=== PATIENT | female | born 1980 | race Caucasian/White ===

== ENCOUNTER 2022-04-22 11:32 | Outpatient (CLI) | payer OTHER, SELFPAY ==
[2022-04-22 12:49] LABS: Chloride* 103 mmol/L (96-114); Potassium* 4.3 mmol/L (3.6-5.1); Sodium* 139 mmol/L (135-149)
[2022-04-22 12:52] LABS: Blood Urea Nitrogen* 19 mg/dL (5-24); Carbon Dioxide* 27 mmol/L (20-32); Estimated Glomerular Filt Rate 72 ml/min
[2022-04-22 12:53] LABS: Calcium* 9.6 mg/dL (8.4-10.6); Glucose* 101 mg/dL (60-115)
== END 2022-04-22 11:33 | disposition home or self-care (01) ==
LOC: NFLDREF 11:33
PROVIDERS: PCP Family Medicine; Visit Provider Family Medicine
DX: Z01.818 Encounter for other preprocedural examination (principal)
CPT/HCPCS: 80048

== ENCOUNTER 2022-05-27 15:26 | Outpatient (CLI) | payer OTHER, SELFPAY ==
--- NOTE | 2022-05-27 15:40 | CRLHL7_ITS ---
For Patients: As a result of the Century Cures Act, medical imaging exams and procedure reports are released immediately into your electronic medical record. You may view this report before your referring provider. If you have questions, please contact your health care provider. BILATERAL DIGITAL SCREENING MAMMOGRAM WITH COMPUTER-AIDED DETECTION AND TOMOSYNTHESIS, 05/27/2022 CLINICAL HISTORY: Routine screening exam. COMPARISON: 03/14/2019 TECHNIQUE: Digital mammogram in CC and MLO projections including computer-aided detection (CAD) and tomosynthesis. BREAST COMPOSITION: There are scattered areas of fibroglandular density. FINDINGS: RIGHT Breast: Nodular density in the lower outer quadrant 5 cm from the nipple. LEFT Breast: No suspicious findings. IMPRESSION: RIGHT breast asymmetry/mass. RECOMMENDATIONS: Additional mammographic views of the RIGHT breast including 3D spot compression CC and MLO. RIGHT breast ultrasound may also be required. The [facility] will contact the patient for follow-up. BI-RADS Category 0: Incomplete - Need Additional Imaging Evaluation and/or Prior Mammograms for Comparison A lay language report of this examination will be provided to the patient. Dictated by Bartolome Marie MD @ 05/28/2022 8:29:46 AM CRL:[email or web address] RD/Dictated by: Bartolome Marie MD @ 05/28/2022 8:29:00 AM (Electronically Signed)
== END 2022-05-27 15:27 | disposition home or self-care (01) ==
LOC: MAMMO 15:27
PROVIDERS: PCP Family Medicine; Visit Provider Obstetrics & Gynecology
DX: Z12.31 Encounter for screening mammogram for malignant neoplasm of breast (principal); N63.10 Unspecified lump in the right breast, unspecified quadrant
CPT/HCPCS: 77063; 77067

== ENCOUNTER 2022-06-05 08:27 | Outpatient (CLI) | payer OTHER, SELFPAY ==
--- NOTE | 2022-06-05 08:45 | CRLHL7_ITS ---
For Patients: As a result of the Cures Act, medical imaging exams and procedure reports are released immediately into your electronic medical record. You may view this report before your referring provider. If you have questions, please contact your health care provider. DIGITAL DIAGNOSTIC RIGHT MAMMOGRAM USING TOMOSYNTHESIS AND COMPUTER-AIDED DETECTION RIGHT BREAST ULTRASOUND CLINICAL HISTORY: RIGHT breast mass/asymmetry. COMPARISON: 05/27/2022. TECHNIQUE: Digital RIGHT mammogram in two projections. Tomosynthesis and CAD utilized. Real-time ultrasound imaging of RIGHT breast with imaging documentation. Scanning was performed by both the technologist and the radiologist. BREAST COMPOSITION: There are areas of scattered fibroglandular density. FINDINGS: 3D spot compression CC/MLO RIGHT breast mammograms submitted. Persistent nodular density within the lower outer quadrant RIGHT breast. No architectural distortion. Targeted sonogram RIGHT breast 8 o`clock 4 cm from the nipple performed. In this location there is a circumscribed lobular hypoechoic structure measuring 8 x 4 x 8 millimeters. This is located at mid depth without definitive increase through-transmission. No abnormal vascularity. IMPRESSION: Indeterminate hypoechoic lobular structure mid depth RIGHT breast 8 o`clock 4 cm from the nipple measuring 8 millimeters. RECOMMENDATIONS: Ultrasound-guided core needle biopsy. Results and recommendations discussed with the patient. BI-RADS Category 4: Suspicious A lay language report of this examination will be provided to the patient. Dictated by Bartolome Marie MD @ 06/05/2022 11:23:43 AM /Dictated by: Bartolome Marie MD @ 06/05/2022 11:23:00 AM (Electronically Signed)
--- NOTE | 2022-06-05 09:15 | CRLHL7_ITS ---
For Patients: As a result of the Cures Act, medical imaging exams and procedure reports are released immediately into your electronic medical record. You may view this report before your referring provider. If you have questions, please contact your health care provider. PLEASE SEE DIGITAL DIAGNOSTIC RIGHT MAMMOGRAM PERFORMED SAME DAY CRL:[email or web address] macedo/Dictated by: Bartolome Marie MD @ 06/05/2022 11:23:00 AM (Electronically Signed)
== END 2022-06-05 08:28 | disposition home or self-care (01) ==
LOC: MAMMO 08:28
PROVIDERS: PCP Family Medicine; Visit Provider Family Medicine
DX: N63.10 Unspecified lump in the right breast, unspecified quadrant (principal); R92.8 Other abnormal and inconclusive findings on diagnostic imaging of breast
CPT/HCPCS: 76642; 77065; G0279

== ENCOUNTER 2022-06-13 09:54 | Outpatient (CLI) | payer OTHER, SELFPAY ==
--- NOTE | 2022-06-13 10:15 | CRLHL7_ITS ---
For Patients: As a result of the Century Cures Act, medical imaging exams and procedure reports are released immediately into your electronic medical record. You may view this report before your referring provider. If you have questions, please contact your health care provider. ULTRASOUND-GUIDED RIGHT BREAST BIOPSY AND POST-BIOPSY DIGITAL MAMMOGRAM FOR BIOPSY MARKER PLACEMENT CLINICAL HISTORY: Indeterminate lesion RIGHT breast. COMPARISON STUDIES: 06/05/2022, 05/27/2022. TECHNIQUE: Real-time ultrasound with image documentation was used for targeting the breast lesion. Core biopsy specimens were obtained using an automated gun with a 18-gauge biopsy needle. Post-biopsy CC and ML digital mammograms were obtained to document position of the biopsy marker. CONSENT and TIME OUT: The procedure, risks, and alternatives were explained to the patient and a consent was signed. [place] Protocol was followed including pre-procedure verification that relevant information/documentation was available, reviewed and properly matched to the patient; consent accurate and complete; and equipment and supplies available. Time Out was conducted just prior to starting procedure to verify the four required elements: patient identity, correct side/site marked (if applicable), procedure, relevant images/results properly labeled and displayed (if applicable). PROCEDURE: The patient was positioned supine on the ultrasound table. The breast was prepped with ChloraPrep. 8 cc of 1 percent lidocaine used for local anesthesia. Core samples were obtained. A sterile metal biopsy clip was placed percutaneously to tom the lesion position within the breast. The specimens were placed in 10% formalin and sent to the pathology department. Pressure was held on the biopsy site until all bleeding subsided. The skin incision was closed with Steri-Strips. An ice pack was positioned over the biopsy site. Post-biopsy instructions were reviewed with the patient, and a written copy was given to her. LATERALITY: RIGHT breast. LESION: Lobular hypoechoic lesion measuring 8 x 4 x 8 millimeters at 8 o`clock 4 cm from the nipple. SUSPICION FOR MALIGNANCY: Low. NUMBER OF SAMPLES: 5 BIOPSY CLIP SHAPE: Coil. PROXIMITY OF CLIP TO TARGET: Within the lesion. IMPRESSION: Ultrasound-guided breast biopsy. When the pathology report is available, an addendum to this report will be made. ACR not applicable Dictated by Bartolome Marie MD @ 06/13/2022 11:21:06 AM PT/Dictated by: Bartolome Marie MD @ 06/13/2022 11:21:00 AM ----- ADDENDUM ----- IMPRESSION: Pathology consistent with cluster of apocrine cysts. No evidence of atypia or malignancy. This is concordant. Resume routine annual screening mammography. Dictated by Bartolome Marie MD @ Jun 13 2022 11:21AM Signed by:?Bartolome Marie MD @06/13/2022 12:46:52 PM (Electronically Signed)
--- NOTE | 2022-06-13 10:45 | CRLHL7_ITS ---
For Patients: As a result of the Cures Act, medical imaging exams and procedure reports are released immediately into your electronic medical record. You may view this report before your referring provider. If you have questions, please contact your health care provider. PLEASE SEE RIGHT ULTRASOUND-GUIDED BIOPSY OF SAME DAY. CRL:[email or web address] PT/Dictated by: Bartolome Marie MD @ 06/13/2022 11:21:00 AM (Electronically Signed)
== END 2022-06-13 09:55 | disposition home or self-care (01) ==
LOC: US 09:55
PROVIDERS: PCP Family Medicine; Visit Provider Family Medicine
DX: N63.10 Unspecified lump in the right breast, unspecified quadrant (principal); R92.8 Other abnormal and inconclusive findings on diagnostic imaging of breast
CPT/HCPCS: 19083; 77065; 88305; A4648; A4649

== ENCOUNTER 2023-03-31 13:35 | Outpatient (CLI) | payer OTHER, SELFPAY | END 2023-03-31 13:36 | disposition home or self-care (01) | PROVIDERS: PCP Family Medicine; Visit Provider Nurse Practitioner Family | DX: R20.2 Paresthesia of skin (principal); I10 Essential (primary) hypertension; E66.01 Morbid (severe) obesity due to excess calories | CPT/HCPCS: 82607; 82947; 84443; 85651; 86039 ==

== ENCOUNTER 2023-04-13 11:25 | Outpatient (CLI) | payer OTHER, SELFPAY | END 2023-04-13 11:26 | disposition home or self-care (01) | LOC: NFLDREF 04-16 07:04 | PROVIDERS: PCP Family Medicine; Referring Provider Family Medicine; Visit Provider Nurse Practitioner Family | DX: M79.646 Pain in unspecified finger(s) (principal) | CPT/HCPCS: 86431 ==

== ENCOUNTER 2023-08-13 16:33 | Outpatient (CLI) | payer OTHER, SELFPAY | END 2023-08-13 16:34 | disposition home or self-care (01) | LOC: FRMREF 16:35 | PROVIDERS: PCP Family Medicine; Visit Provider Registered Nurse | DX: R53.83 Other fatigue (principal) | CPT/HCPCS: 82306 ==

== ENCOUNTER 2024-02-02 06:20 | Outpatient (CLI) | payer OTHER, SELFPAY ==
--- NOTE | 2024-02-02 08:20 | W.ANESCHARGE ---
Anesthesia Charges Start Date/Time Anesthesia Start Date: 02/02/24 Anesthesia Start Time: 07:34 Stop Date/Time Anesthesia Stop Date: 02/02/24 Anesthesia Stop Time: 08:16
--- NOTE | 2024-02-02 08:48 | W.ANESCHARGE ---
Anesthesia Charges Start Date/Time Anesthesia Start Date: 02/02/24 Anesthesia Start Time: 07:34 Stop Date/Time Anesthesia Stop Date: 02/02/24 Anesthesia Stop Time: 08:16
== END 2024-02-02 06:21 | disposition home or self-care (01) ==
LOC: OP CLINIC 06:21
PROVIDERS: PCP Family Medicine; Visit Provider Surgery
DX: Z12.11 Encounter for screening for malignant neoplasm of colon (principal); K64.4 Residual hemorrhoidal skin tags; Z80.0 Family history of malignant neoplasm of digestive organs
CPT/HCPCS: 00812; 45378; J2704

== ENCOUNTER 2024-07-05 08:20 | Outpatient (CLI) | payer OTHER, SELFPAY | END 2024-07-05 08:21 | disposition home or self-care (01) | PROVIDERS: PCP Family Medicine; Visit Provider Family Medicine | DX: E53.8 Deficiency of other specified B group vitamins (principal); I10 Essential (primary) hypertension; E66.01 Morbid (severe) obesity due to excess calories; R53.83 Other fatigue; F33.9 Major depressive disorder, recurrent, unspecified | CPT/HCPCS: 80048; 82306; 82607 ==

== ENCOUNTER 2024-10-10 15:13 | Outpatient (CLI) | payer OTHER, SELFPAY | END 2024-10-10 15:14 | disposition home or self-care (01) | LOC: MAMMO 15:14 | PROVIDERS: PCP Family Medicine; Visit Provider Family Medicine | DX: Z12.31 Encounter for screening mammogram for malignant neoplasm of breast (principal) | CPT/HCPCS: 77063; 77067 ==

== ENCOUNTER 2025-01-24 15:57 | Outpatient (CLI) | payer OTHER, SELFPAY | END 2025-01-24 15:58 | disposition home or self-care (01) | LOC: NFLDREF 15:58 | PROVIDERS: PCP Family Medicine; Visit Provider Registered Nurse | DX: Z13.6 Encounter for screening for cardiovascular disorders (principal) | CPT/HCPCS: 80061 ==

== ENCOUNTER 2025-02-24 16:28 | Outpatient (CLI) | payer OTHER, SELFPAY | END 2025-02-24 16:29 | disposition home or self-care (01) | PROVIDERS: PCP Family Medicine; Visit Provider Registered Nurse | DX: R42 Dizziness and giddiness (principal) | CPT/HCPCS: 80053; 82728 ==

== ENCOUNTER 2025-06-14 08:50 | Outpatient (CLI) | payer OTHER, SELFPAY | END 2025-06-14 08:51 | disposition home or self-care (01) | LOC: FBOREF 08:50 | PROVIDERS: PCP Family Medicine; Visit Provider Family Medicine | DX: R79.89 Other specified abnormal findings of blood chemistry (principal) | CPT/HCPCS: 80076 ==